=== PATIENT | male | born 1960 ===

== ENCOUNTER 2024-02-23 08:50 | Day surgery (SDC) | payer OTHER ==
[2024-02-23] MEDS ORDERED: TYLENOL ARTHRI650 MG PO (09:38)
[2024-02-23] MEDS ORDERED: TRAMADOL HCL50 MG PO (09:38)
[2024-02-23] MEDS ORDERED: KETO10TA2 PO (09:38)
[2024-02-23] MEDS ORDERED: MIRALAX17 GM PO (09:38)
[2024-02-23] MEDS ORDERED: BUPIVACAINE HCL 30 ML VIAL IJ ONE (12:30)
[2024-02-23] MEDS ORDERED: CEFAZOLIN SODIUM 1,000 MG VIAL IV ONE (12:30)
[2024-02-23] MEDS ORDERED: MORPHINE SULFATE 4 MG/ML VIAL IV ONE ×2 (13:45→14:15)
== END 2024-02-23 17:40 | disposition home or self-care (01) ==
LOC: CIR.AMB 08:50
PROVIDERS: ATTEND Surgery
DX: K40.90 Unilateral inguinal hernia, without obstruction or gangrene, not specified as recurrent (principal); K42.0 Umbilical hernia with obstruction, without gangrene
CPT/HCPCS: 49650; 49592; C1781